=== PATIENT | female | born 1990 | race Caucasian/White ===

== ENCOUNTER 2024-06-19 17:05 | Outpatient (CLI) | payer BC, SELFPAY ==
[2024-06-19 17:34] LABS: Basophils # (Auto) 0.1 Thou/mm3 (0.0-0.2); Basophils % (Auto) 1 % (0-2.5); Eosinophils # (Auto) 0.2 Thou/mm3 (0.0-0.5); Eosinophils % (Auto) 2 % (0-10); Hematocrit 35.3 % (36.0-46.0); Immature Granulocytes % (Auto) 1 % (0-0); Immature Granulocytes Auto 0.06 Thou/mm3 (0.00-0.00); Lymphocytes # (Auto) 2.6 Thou/mm3 (1.0-4.8); Lymphocytes % (Auto) 25 % (10-50); Mean Corpuscular Hemoglobin 29.3 pg (25.0-35.0); Mean Corpuscular Volume 86 fL (80-100); Monocytes # (Auto) 0.6 Thou/mm3 (0.0-0.8); Monocytes % (Auto) 6 % (0-12); Neutrophils # (Auto) 6.8 Thou/mm3 (1.8-7.7); Neutrophils % (Auto) 66 % (37-80); Nucleated Red Blood Cell % 0 /100 WBC (0); Platelet Count 263 Thou/mm3 (140-440); White Blood Count 10.3 Thou/mm3 (3.6-11.0)
[2024-06-19 18:00] LABS: Sed Rate (ESR) 11 mm/hr (0-20)
[2024-06-19 18:32] LABS: Alanine Aminotransferase < 7 U/L (10-49); Albumin, Serum 4.1 gm/dL (3.5-5.0); Albumin/Globulin Ratio 1.5 (1.2-2.2); Alkaline Phosphatase 57 U/L (46-116); Anion Gap 9 (7-16); Aspartate Amino Transferase 11 U/L (0-34); BUN/Creatinine Ratio 18 Ratio (12-20); Bilirubin,Total 0.2 mg/dL (0.3-1.2); Blood Urea Nitrogen 11 mg/dL (9-23); Calcium 9.5 mg/dL (8.3-10.6); Calcium (Corrected) 9.5 mg/dL (8.5-10.1); Carbon Dioxide 26.5 mMol/L (20.0-31.0); Chloride 102 mMol/L (98-107); Creatinine (Component) 0.6 mg/dL (0.6-1.3); Globulin 2.7 gm/dL (2.3-3.5); Glucose 109 mg/dL (74-106); Osmolality,Calculated 274 (275-295); Potassium 4.2 mMol/L (3.4-5.1); Sodium 137 mMol/L (136-145); Total Protein 6.8 gm/dL (5.7-8.2); eGFR > 60 See Note
[2024-07-02 06:52] LABS: hs-CRP* 4.6 mg/L
== END 2024-06-20 15:05 | disposition home or self-care (01) ==
PROVIDERS: PCP Specialist; Referring Provider Specialist; Visit Provider Specialist
DX: R79.89 Other specified abnormal findings of blood chemistry (principal); K58.0 Irritable bowel syndrome with diarrhea; R53.1 Weakness; K58.9 Irritable bowel syndrome, unspecified; E03.9 Hypothyroidism, unspecified
CPT/HCPCS: 36415; 80053; 85025; 85652; 86141

== ENCOUNTER → 2024-06-29 | Outpatient (CLI) | payer BC, SELFPAY ==
[2024-06-29 11:00] VITALS: BP 118/82; PULSE 100; RESP 20; TEMP 36.4; O2SAT 100; BMI 26.8
[2024-06-29] MEDS: VEDOLIZUMAB IV (11:52)
[2024-06-29] MEDS: SODIUM CHLORIDE 0.9% IV (11:52)
[2024-06-29 12:40] VITALS: BP 108/61; PULSE 81; RESP 20; TEMP 36.4; O2SAT 97
== END | disposition home or self-care (01) ==
LOC: SFLEX 10:41
PROVIDERS: PCP Specialist; Referring Provider Specialist; Visit Provider Specialist
PROC: (CPT 96365; principal; 2024-06-29 10:00)
DX: K58.0 Irritable bowel syndrome with diarrhea (principal); K50.90 Crohn's disease, unspecified, without complications
CPT/HCPCS: 96365; J3380; J7050

== ENCOUNTER → 2024-08-14 | Outpatient (CLI) | payer BC, SELFPAY ==
[2024-08-14 11:54] LABS: Misc Send Out* See Sep Rpt
[2024-08-14 12:34] LABS: Basophils % (Auto) 0 % (0-2.5); Eosinophils # (Auto) 0.1 Thou/mm3 (0.0-0.5); Eosinophils % (Auto) 2 % (0-10); Hematocrit 34.1 % (36.0-46.0); Hemoglobin 11.3 g/dL (12.0-16.0); Immature Granulocytes % (Auto) 1 % (0-0); Immature Granulocytes Auto 0.08 Thou/mm3 (0.00-0.00); Lymphocytes # (Auto) 2.1 Thou/mm3 (1.0-4.8); Lymphocytes % (Auto) 24 % (10-50); Mean Corpuscular HGB Conc 33.1 g/dl (31.0-37.0); Mean Corpuscular Hemoglobin 28.8 pg (25.0-35.0); Mean Corpuscular Volume 87 fL (80-100); Monocytes # (Auto) 0.6 Thou/mm3 (0.0-0.8); Monocytes % (Auto) 7 % (0-12); Neutrophils % (Auto) 66 % (37-80); Nucleated Red Blood Cell % 0 /100 WBC (0); Platelet Count 272 Thou/mm3 (140-440); RDW Standard Deviation 42.5 fL (36.4-46.3); Red Blood Count 3.92 Miln/mm3 (4.00-5.20)
[2024-08-14 13:18] LABS: Glucose,1 Hour PP 50gm Dose 79 mg/dL (80-140)
[2024-08-14 13:59] LABS: Hepatitis B Surface Antigen Non Reactive (Non React); Hepatitis C Antibody Non Reactive (Non React); Rubella, IgG Antibody Reactive (Immune)
[2024-08-14 16:11] LABS: Albumin, Serum 3.8 gm/dL (3.5-5.0); Albumin/Globulin Ratio 1.4 (1.2-2.2); Alkaline Phosphatase 63 U/L (46-116); Anion Gap 8 (7-16); Aspartate Amino Transferase 13 U/L (0-34); BUN/Creatinine Ratio 17 Ratio (12-20); Bilirubin,Total 0.4 mg/dL (0.3-1.2); Blood Urea Nitrogen 10 mg/dL (9-23); C-Reactive Protein 0.8 mg/dL (0.0-0.9); Calcium 8.9 mg/dL (8.3-10.6); Calcium (Corrected) 9.1 mg/dL (8.5-10.1); Carbon Dioxide 24.9 mMol/L (20.0-31.0); Chloride 104 mMol/L (98-107); Creatinine (Component) 0.6 mg/dL (0.6-1.3); Globulin 2.7 gm/dL (2.3-3.5); Glucose 75 mg/dL (74-106); Osmolality,Calculated 271 (275-295); Potassium 4.1 mMol/L (3.4-5.1); Sodium 137 mMol/L (136-145); Total Protein 6.5 gm/dL (5.7-8.2); eGFR > 60 See Note
[2024-08-14 16:26] LABS: Alanine Aminotransferase 8 U/L (10-49)
[2024-08-14 16:41] LABS: Syphilis Nonreactive (Nonreactive)
[2024-08-22 06:07] LABS: Sesame Seed (F10) IgE <0.10 kU/L
[2024-08-22 06:45] LABS: HIV Ag/Ab, 4th Gen NON-REACTIVE; Sesame Seed (F10) Class 0
== END | disposition home or self-care (01) ==
LOC: COPL 11:27
PROVIDERS: PCP Specialist; Referring Provider Specialist; Visit Provider Obstetrics & Gynecology
DX: R79.89 Other specified abnormal findings of blood chemistry (principal); R53.1 Weakness; E03.9 Hypothyroidism, unspecified; R11.2 Nausea with vomiting, unspecified; R42 Dizziness and giddiness; K50.119 Crohn's disease of large intestine with unspecified complications
CPT/HCPCS: 36415; 80053; 82950; 82951; 85025; 86140; 86762; 86780; 86803; 86850; 86900; 86901; 87340; 87389

== ENCOUNTER → 2024-09-03 | Outpatient (CLI) | payer BC, SELFPAY ==
[2024-09-03 10:31] VITALS: BP 102/62; PULSE 85; RESP 14; TEMP 36.2; O2SAT 98; BMI 28.5
[2024-09-03] MEDS: VEDOLIZUMAB IV (11:37)
[2024-09-03] MEDS: SODIUM CHLORIDE IV (11:37)
[2024-09-03] MEDS: STERILE WATER IV (11:37)
[2024-09-03 12:25] VITALS: BP 108/67; PULSE 83; RESP 18; TEMP 36.3; O2SAT 99
== END | disposition home or self-care (01) ==
LOC: SFLEX 10:18
PROVIDERS: Referring Provider Specialist; Visit Provider Specialist
PROC: (CPT 96365; principal; 2024-09-03 10:00)
DX: K58.0 Irritable bowel syndrome with diarrhea (principal); K50.90 Crohn's disease, unspecified, without complications
CPT/HCPCS: 96365; 96366; A4216; J3380; J7050

== ENCOUNTER → 2024-11-20 | Outpatient (CLI) | payer BC, SELFPAY ==
[2024-11-20 12:50] LABS: Basophils # (Auto) 0.1 Thou/mm3 (0.0-0.2); Basophils % (Auto) 1 % (0-2.5); Eosinophils # (Auto) 0.3 Thou/mm3 (0.0-0.5); Eosinophils % (Auto) 5 % (0-10); Hematocrit 43.9 % (36.0-46.0); Hemoglobin 13.7 g/dL (12.0-16.0); Immature Granulocytes Auto 0.02 Thou/mm3 (0.00-0.00); Lymphocytes # (Auto) 2.7 Thou/mm3 (1.0-4.8); Lymphocytes % (Auto) 37 % (10-50); Mean Corpuscular HGB Conc 31.2 g/dl (31.0-37.0); Mean Corpuscular Hemoglobin 25.9 pg (25.0-35.0); Mean Corpuscular Volume 83 fL (80-100); Monocytes # (Auto) 0.6 Thou/mm3 (0.0-0.8); Monocytes % (Auto) 9 % (0-12); Neutrophils # (Auto) 3.5 Thou/mm3 (1.8-7.7); Neutrophils % (Auto) 48 % (37-80); Nucleated Red Blood Cell # 0.00 Thou/mm3 (0.00-0.00); Nucleated Red Blood Cell % 0 /100 WBC (0); Platelet Count 320 Thou/mm3 (140-440); RDW Standard Deviation 47.0 fL (36.4-46.3); Red Blood Count 5.28 Miln/mm3 (4.00-5.20); White Blood Count 7.2 Thou/mm3 (3.6-11.0)
[2024-11-20 13:02] LABS: Alanine Aminotransferase 11 U/L (10-49); Albumin, Serum 4.5 gm/dL (3.5-5.0); Albumin/Globulin Ratio 1.5 (1.2-2.2); Alkaline Phosphatase 84 U/L (46-116); Anion Gap 6 (7-16); Aspartate Amino Transferase 17 U/L (0-34); BUN/Creatinine Ratio 13 Ratio (12-20); Bilirubin,Total 0.3 mg/dL (0.3-1.2); Blood Urea Nitrogen 12 mg/dL (9-23); Calcium 9.6 mg/dL (8.3-10.6); Calcium (Corrected) 9.6 mg/dL (8.5-10.1); Carbon Dioxide 28.5 mMol/L (20.0-31.0); Chloride 108 mMol/L (98-107); Creatinine (Component) 0.9 mg/dL (0.6-1.3); Globulin 3.0 gm/dL (2.3-3.5); Glucose 84 mg/dL (74-106); Osmolality,Calculated 281 (275-295); Potassium 4.4 mMol/L (3.4-5.1); Sodium 142 mMol/L (136-145); Total Protein 7.5 gm/dL (5.7-8.2); eGFR > 60 See Note
[2024-11-20 14:15] LABS: Sed Rate (ESR) 11 mm/hr (0-20)
[2024-11-29 06:28] LABS: hs-CRP* 1.6 mg/L
== END | disposition home or self-care (01) ==
LOC: COPL 12:08
PROVIDERS: PCP Specialist; Referring Provider Specialist; Visit Provider Specialist
DX: R53.1 Weakness (principal); E03.9 Hypothyroidism, unspecified; R11.2 Nausea with vomiting, unspecified; R42 Dizziness and giddiness; K50.119 Crohn's disease of large intestine with unspecified complications; R79.89 Other specified abnormal findings of blood chemistry
CPT/HCPCS: 36415; 80053; 85025; 85652; 86141

== ENCOUNTER → 2024-11-21 | Outpatient (CLI) | payer BC, SELFPAY ==
[2024-11-21 12:00] VITALS: BP 111/64; PULSE 86; RESP 18; TEMP 36.6; O2SAT 97; BMI 24.3
[2024-11-21] MEDS: STERILE WATER IV (12:10)
[2024-11-21] MEDS: VEDOLIZUMAB IV (12:10)
[2024-11-21] MEDS: SODIUM CHLORIDE IV (12:10)
[2024-11-21 12:53] VITALS: BP 106/69; PULSE 90; RESP 18; TEMP 36.4; O2SAT 97
== END | disposition home or self-care (01) ==
LOC: SFLEX 11:13
PROVIDERS: PCP Specialist; Referring Provider Specialist; Visit Provider Specialist
PROC: (CPT 96365; principal; 2024-11-21 11:00)
DX: K51.80 Other ulcerative colitis without complications (principal)
CPT/HCPCS: 96365; A4216; J3380; J7050